=== PATIENT | female | born 1935 | race Caucasian/White ===

== ENCOUNTER 2016-11-07 11:13 | Outpatient (CLI) | payer MEDICARE, BC | END 2016-11-07 11:14 | disposition home or self-care (01) | DX: I73.9 Peripheral vascular disease, unspecified (principal) ==

== ENCOUNTER 2016-11-29 15:16 | Outpatient (CLI) | payer MEDICARE, BC | END 2016-11-29 15:17 | disposition home or self-care (01) | DX: E87.5 Hyperkalemia (principal); E11.9 Type 2 diabetes mellitus without complications; I10 Essential (primary) hypertension; J44.9 Chronic obstructive pulmonary disease, unspecified ==

== ENCOUNTER 2017-03-27 12:16 | Outpatient (CLI) | payer MEDICARE, BC ==
--- NOTE | 2017-03-30 08:57 | Nuclear Medicine Report ---
EXAM: BONE SCAN EXAM DATE: 03/27/2017 03:14 PM. CLINICAL HISTORY: BONE LESION, HISTORY OF BREAST CANCER. Right shoulder pain. COMPARISON: Lumbar spine MR scan dated 07/21/2016. Also lumbar spine radiographs dated 07/03/2007. TECHNIQUE: Following the intravenous administration of 31.7 mCi of technetium 99m MDP and an appropri ate delay, a whole-body scan was performed in anterior and posterior projections. Site-specific spot views of the region of interest were obtained in various projections. FINDINGS: Exam Quality: Normal overall bone radiotracer uptake. Physiological tracer uptake in bilateral collec ting systems. Skull: No focal abnormal uptake. Thorax: No focal abnormal uptake in ribs or sternum. Focal increased uptake in shoulders and SC joint s most compatible with arthritic changes. Pelvis: Subtle increased uptake in left anterior iliac crest. Otherwise unremarkable. Spine: Small foci of increased uptake in lower thoracic and upper lumbar spine, probably related to d egenerative changes. IMPRESSION: 1. Small focus of increased uptake in left anterior iliac spine; correlation with current pelvis radi ograph is recommended. 2. Other foci of increased uptake most likely arthritic. [facility] Referring Provider Line: [phone] SITE ID: [id number]
== END 2017-03-27 12:17 | disposition home or self-care (01) ==
LOC: DI 12:16
PROVIDERS: ATTEND Family Medicine
DX: R94.8 Abnormal results of function studies of other organs and systems (principal)
CPT/HCPCS: 78306; A9503

== ENCOUNTER 2017-07-02 08:00 | Outpatient (CLI) | payer MEDICARE, BC ==
[2017-07-02 19:15] LABS: BASOPHILS % (AUTO) 0.5 %; EOSINOPHILS # (AUTO) 0.1 10^3/uL (0.0-0.7); HCT - HEMATOCRIT 36.7 % (37.0-47.0); HGB - HEMOGLOBIN 11.8 g/dL (12.0-16.0); LYMPHOCYTES # (AUTO) 0.4 10^3/uL (1.5-3.5); LYMPHOCYTES % (AUTO) 4.8 %; MEAN CORPUSCULAR HGB CONC 32.2 g/dL (32.0-36.0); MEAN CORPUSCULAR VOLUME 83.8 fL (81.0-99.0); MONOCYTES # (AUTO) 0.4 10^3/uL (0.0-1.0); MONOCYTES % (AUTO) 5.6 %; NEUTROPHILS # (AUTO) 6.6 10^3/uL (1.5-6.6); NEUTROPHILS % (AUTO) 88.1 %; RED BLOOD COUNT 4.38 10^6/uL (4.20-5.40); RED CELL DISTRIBUTION WIDTH 14.8 % (12.0-15.0); UNCORRECTED WHITE BLOOD COUNT 7.5 x10^3/uL; WHITE BLOOD COUNT 7.5 x10^3/uL (4.8-10.8)
[2017-07-02 19:48] LABS: BILIRUBIN,TOTAL 0.4 mg/dL (0.2-1.0); BUN - BLOOD UREA NITROGEN 38 mg/dL (6-20); CALCIUM 8.8 mg/dL (8.5-10.3); CARBON DIOXIDE - CO2 22 mmol/L (21-32); CHLORIDE 108 mmol/L (101-111); CHOL/HDL RATIO 4.1 (<4.4); CHOLESTEROL 162 mg/dL; CREATININE 0.9 mg/dL (0.4-1.0); GFR - MDRD 60 (>89); GLUCOSE 102 mg/dL (70-100); HDL CHOLESTEROL 40 mg/dL; POTASSIUM 4.7 mmol/L (3.5-5.0); SODIUM 137 mmol/L (135-145); TOTAL PROTEIN 6.3 g/dL (6.7-8.2); TRIGLYCERIDES 204 mg/dL; VLDL CHOLESTEROL 41 mg/dL
[2017-07-02 20:35] LABS: HEMOGLOBIN A1C 0.68 g/dL
== END 2017-07-02 08:01 | disposition home or self-care (01) ==
LOC: LAB.WCP 08:00
PROVIDERS: ATTEND Family Medicine
DX: R06.02 Shortness of breath (principal); E11.9 Type 2 diabetes mellitus without complications; E78.5 Hyperlipidemia, unspecified; I10 Essential (primary) hypertension
CPT/HCPCS: 36415; 80053; 80061; 83036; 85025

== ENCOUNTER 2017-07-13 18:02 | Outpatient (CLI) | payer MEDICARE, BC ==
--- NOTE | 2017-07-13 19:11 | XRAY Preliminary Report ---
Exam: XR CHEST 2 VIEW PA/LAT IMPRESSION: Acute on chronic lung disease consisting of bibasilar infiltrates and moderate bilateral pleural effusions. GABEA The call report notification system was initiated by Dr. Bev Carrasco at 18:51 hrs on 07/13/17. The above findings were discussed with Dr Wood by Dr. Bev Carrasco at 19:10 hrs on 07/13/17. SITE ID: [id number]
--- NOTE | 2017-07-13 19:17 | XRAY Report ---
EXAM: CHEST RADIOGRAPHY EXAM DATE: 07/13/2017 06:31 PM. CLINICAL HISTORY: Shortness of breath. COMPARISON: No prior chest x-ray. Right shoulder 06/14/2017. TECHNIQUE: 2 views. FINDINGS: Lungs/Pleura: Overexpanded. Moderate blunting of the lateral posterior costophrenic angles. Bibasilar reticular nodular infiltrates. No upper lobe mass congestion nor pneumothorax. Mediastinum: Heart and mediastinal contours are unremarkable. Other: Remote right breast surgery. IMPRESSION: Acute on chronic lung disease consisting of bibasilar infiltrates and moderate bilateral pleural effusions. [facility] The call report notification system was initiated by Dr. Bev Carrasco at 18:51 hrs on 07/13/17. The above findings were discussed with Dr Wood by Dr. Bev Carrasco at 19:10 hrs on 07/13/17. Referring Provider Line: [phone] SITE ID: [id number]
== END 2017-07-13 18:03 | disposition home or self-care (01) ==
LOC: DI 18:02
PROVIDERS: ATTEND Family Medicine
DX: R91.8 Other nonspecific abnormal finding of lung field (principal); J90 Pleural effusion, not elsewhere classified
CPT/HCPCS: 71020

== ENCOUNTER 2017-07-27 10:59 | Outpatient (CLI) | payer MEDICARE, BC | END 2017-07-27 11:00 | disposition home or self-care (01) | LOC: DI 10:59 | PROVIDERS: ATTEND Family Medicine | DX: R06.02 Shortness of breath (principal) | CPT/HCPCS: 93306 ==

== ENCOUNTER 2017-08-21 13:07 | Outpatient (CLI) | payer MEDICARE, BC | END 2017-08-21 13:08 | disposition critical access hospital (66) | LOC: EMS 13:07 | PROVIDERS: ATTEND Surgery | DX: R10.9 Unspecified abdominal pain (principal) | CPT/HCPCS: A0425; A0427 ==

== ENCOUNTER 2017-08-21 13:25 | Inpatient (IN) | payer MEDICARE, BC ==
[2017-08-21] MEDS ORDERED: MORPHINE 2 MG/ML SYRINGE IVP STA (13:42)
[2017-08-21] MEDS ORDERED: SODIUM CHLORIDE 0.9% 1,000 ML IV ONE (13:42)
--- NOTE | 2017-08-21 13:46 | ED Physician Documentation ---
PD HPI ABD PAIN - Stated complaint Stated Complaint: abd/back px - Chief complaint Chief Complaint: Abd Pain - History obtained from History obtained from: Patient, EMS - History of Present Illness Timing - onset: Other (81-year-old woman with lower abdominal and rectal pain of 2 months duration which is worsening and much worse today. It is associated with poor appetite, she is basically not eating at all, she has been drinking energy drinks and shakes. She has had decreased bowel movements and a 70 pound weight loss in that.. She had an x-ray yesterday showing a potential ileus. She been taking pain medication, but she does not know what kind it is not helpful. She does not know when her last colonoscopy was.) Review of Systems Ten Systems: 10 systems reviewed and negative Constitutional: reports: Fatigue, Weight Loss. denies: Fever, Chills Cardiac: denies: Chest pain / pressure, Palpitations Respiratory: denies: Dyspnea, Cough GI: reports: Abdominal Pain, Constipation. denies: Nausea, Vomiting : denies: Dysuria PD PAST MEDICAL HISTORY - Past Medical History Past Medical History: Yes Endocrine/Autoimmune: Type 2 diabetes - Past Surgical History Past Surgical History: No - Allergies Allergies/Adverse Reactions: Allergies Allergy/AdvReac Type Severity Reaction Status Date / Time No Known Drug Allergies Allergy Verified 08/21/17 13:32 - Social History Does the pt smoke?: No Smoking Status: Former smoker Does the pt drink ETOH?: No Does the pt have substance abuse?: No - Family History Family history: reports: Non contributory - Immunizations Immunizations: Other immun not current - POLST Patient has POLST: No PD ED PE NORMAL - Vitals Vital signs reviewed: Yes - General General: Alert and oriented X 3, Other (She is slightly somnolent, she is cachectic) - HEENT HEENT: PERRL, EOMI - Neck Neck: Supple, no meningeal sign, No bony TTP - Cardiac Cardiac: RRR, No murmur, Other (Hyperdynamic precordium) - Respiratory Respiratory: No respiratory distress, Clear bilaterally - Abdomen Abdomen: Other (Tender to the low abdomen without surgical signs) - Rectal Rectal: Other (with Eneida RN. There is a large anterior rectal mass, brown stool which is trace guaiac positive.) - Back Back: No CVA TTP, No spinal TTP - Derm Derm: Normal color, Warm and dry - Extremities Extremities: No deformity, No tenderness to palpate, Normal ROM s pain, No edema , No calf tenderness / cord - Neuro Neuro: Alert and oriented X 3, Normal speech - Psych Psych: Normal mood, Normal affect Results - Vitals Vitals: Vital Signs - 24 hr 08/21/17 08/21/17 13:26 14:53 Temperature 36.1 C L Heart Rate 87 64 Respiratory 16 20 Rate Blood Pressure 139/63 H 152/74 H O2 Saturation 97 98 Oxygen O2 Source Room air - Labs Labs: Laboratory Tests 08/21/17 08/21/17 08/21/17 14:03 14:03 14:03 WBC 21.9 H RBC 4.58 Hgb 12.0 Hct 37.0 MCV 80.7 L MCH 26.2 L MCHC 32.5 RDW 14.5 Plt Count 460 H MPV 7.2 L Neut # 21.0 H Lymph # 0.2 L [place] # 0.6 Eos # 0.0 Baso # 0.0 Absolute Nucleated RBC 0.00 Nucleated RBC % 0.0 Manual Slide Review Indicated WBC Morphology Platelet Estimate INCREASED (>450,000) Platelet Morphology NORMAL APPEARANCE RBC Morph Micro Appear NORMAL APPEARANCE PT 15.0 H INR 1.3 H Sodium 131 L Potassium 5.1 H Chloride 95 L Carbon Dioxide 19 L Anion Gap 17.0 H BUN 69 H Creatinine 1.6 H Estimated GFR (MDRD) 31 L Glucose 166 H Calcium 8.7 Magnesium 2.1 Total Bilirubin 0.7 AST 32 ALT 26 Alkaline Phosphatase 141 H Total Creatine Kinase 42 CK-MB (CK-2) Troponin I Total Protein 6.6 L Albumin 2.6 L Globulin 4.0 Albumin/Globulin Ratio 0.7 L Lipase 25 TSH 08/21/17 08/21/17 14:03 14:03 WBC RBC Hgb Hct MCV MCH MCHC RDW Plt Count MPV Neut # Lymph # [place] # Eos # Baso # Absolute Nucleated RBC Nucleated RBC % Manual Slide Review WBC Morphology Platelet Estimate Platelet Morphology RBC Morph Micro Appear PT INR Sodium Potassium Chloride Carbon Dioxide Anion Gap BUN Creatinine Estimated GFR (MDRD) Glucose Calcium Magnesium Total Bilirubin AST ALT Alkaline Phosphatase Total Creatine Kinase CK-MB (CK-2) 5.0 Troponin I < 0.04 Total Protein Albumin Globulin Albumin/Globulin Ratio Lipase TSH 3.68 - Rads (name of study) 2v chest Radiology: EMP read contemporaneously (Increasing small bilateral effusions with pleural opacities and alveolar opacities which are unchanged.) PD MEDICAL DECISION MAKING - ED course ED course: This is an 81-year-old woman who presents by ambulance with weight loss and perineal pain, evidence of likely rectal cancer on examination which is corroborated on CT with evidence of small bowel obstruction and metastatic disease in the liver. She does have necessity for IV pain medications and IV fluids and will be admitted for further evaluation and treatment. The patient is not interested in surgical options. I discussed the case with the hospice nurse practitioner Angelina Regan and also with Dr. Shelby by phone at 3:30 PM. Departure - Departure Disposition: 66 [facility] DC/Xfer Clinical Impression: Small bowel obstruction, Metastatic cancer Condition: Serious
[2017-08-21] MEDS ORDERED: MORPHINE 2 MG/ML SYRINGE ONE (13:55)
[2017-08-21 14:12] LABS: BASOPHILS % (AUTO) 0.2 %; LYMPHOCYTES # (AUTO) 0.2 10^3/uL (1.5-3.5); MEAN CORPUSCULAR HEMOGLOBIN 26.2 pg (27.0-31.0); MEAN CORPUSCULAR HGB CONC 32.5 g/dL (32.0-36.0); MEAN CORPUSCULAR VOLUME 80.7 fL (81.0-99.0); MEAN PLATELET VOLUME 7.2 fL (7.9-10.8); MONOCYTES # (AUTO) 0.6 10^3/uL (0.0-1.0); MONOCYTES % (AUTO) 2.6 %; NEUTROPHILS % (AUTO) 96.2 %; RED BLOOD COUNT 4.58 10^6/uL (4.20-5.40); RED CELL DISTRIBUTION WIDTH 14.5 % (12.0-15.0); UNCORRECTED WHITE BLOOD COUNT 21.9 x10^3/uL; WHITE BLOOD COUNT 21.9 x10^3/uL (4.8-10.8)
[2017-08-21 14:23] LABS: ALBUMIN/GLOBULIN RATIO 0.7 (1.0-2.2); BILIRUBIN,TOTAL 0.7 mg/dL (0.2-1.0); CALCIUM 8.7 mg/dL (8.5-10.3); CREATININE 1.6 mg/dL (0.4-1.0); MAGNESIUM 2.1 mg/dL (1.7-2.8); POTASSIUM 5.1 mmol/L (3.5-5.0); TOTAL PROTEIN 6.6 g/dL (6.7-8.2)
[2017-08-21 14:26] LABS: TROPONIN I < 0.04 ng/mL (<0.49)
[2017-08-21 14:28] LABS: INR 1.3 (0.8-1.2)
[2017-08-21 14:31] LABS: PLATELET ESTIMATE, MANUAL INCREASED (>450,000) (NORMAL); PLATELET MORPHOLOGY NORMAL APPEARANCE (NORMAL)
[2017-08-21 14:54] VITALS: BP 152/74
--- NOTE | 2017-08-21 15:04 | XRAY Preliminary Report ---
Exam: XR CHEST 2 VIEW PA/LAT IMPRESSION: 1. Bilateral small pleural effusions are mildly larger in size compared to 07/13/2017. 2. Basilar interstitial and alveolar opacities otherwise unchanged. [facility] SITE ID: [id number]
--- NOTE | 2017-08-21 15:07 | XRAY Report ---
EXAM: CHEST RADIOGRAPHY EXAM DATE: 08/21/2017 02:40 PM. CLINICAL HISTORY: Weight loss. COMPARISON: 07/13/2017. TECHNIQUE: 2 views. FINDINGS: Lungs/Pleura: There are bilateral small pleural effusions which appear slightly increased in size pos teriorly on the lateral image. There is a moderate amount of consolidation in the mid and lower lung zones which appear unchanged. No definite new airspace disease. Negative for pneumothorax. Mediastinum: Heart and mediastinal contours are unremarkable. Other: None. IMPRESSION: 1. Bilateral small pleural effusions are mildly larger in size compared to 07/13/2017. 2. Basilar interstitial and alveolar opacities otherwise unchanged. [facility] Referring Provider Line: [phone] SITE ID: [id number]
--- NOTE | 2017-08-21 15:08 | CT Preliminary Report ---
Exam: CT ABDOMEN/PELVIS W/O IMPRESSION: 1. Findings of distal small bowel obstruction. 2. Extensive hepatic metastatic disease. 3. Moderate to large pleural effusions with underlying atelectasis. 4. Other chronic or incidental findings. [facility] SITE ID: [id number]
--- NOTE | 2017-08-21 15:10 | CT Report ---
EXAM: CT ABDOMEN AND PELVIS EXAM DATE: 08/21/2017 02:41 PM. CLINICAL HISTORY: Rectal mass, weight loss, high creatinine. COMPARISONS: None. TECHNIQUE: Routine helical CT imaging was performed through the abdomen and pelvis. IV contrast: None . Enteric contrast: No. Reconstructions: Coronal and sagittal. In accordance with CT protocol optimization, one or more of the following dose reduction techniques w ere utilized for this exam: automated exposure control, adjustment of mA and/or KV based on patient s ize, or use of iterative reconstructive technique. FINDINGS: Lung Bases: Moderate to large bilateral pleural effusions with underlying atelectasis. Coarse lung ma rkings with scarring anteriorly. No pneumothorax. At least three-vessel coronary artery calcification s. Liver: Markedly heterogeneous with numerous ill-defined hypoattenuation lesions. Gallbladder/Bile Ducts: Surgically absent. No ductal dilation. Spleen: Normal. Pancreas: Normal. Adrenal Glands: Thickened and lobulated with indeterminate density. Kidneys: Normal. No masses or hydronephrosis. Peritoneal Cavity/Bowel: Diffuse to dilated small bowel loops with prominent fluid and air-fluid leve ls, measuring up to 3.4 cm in diameter with transition zone in right lower quadrant. No colonic dilat ion. Rectal mass not well visualized in this unenhanced study. Trace free fluid. No free air or defin ite lymphadenopathy. Unremarkable region of appendix. Pelvic Organs: Decompressed urinary bladder. Vasculature: No aneurysms or other significant abnormality. Bones: Mild scoliosis, degenerative changes, sacralization of L5. Other: Very little body fat. IMPRESSION: 1. Findings of distal small bowel obstruction. 2. Extensive hepatic metastatic disease. 3. Moderate to large pleural effusions with underlying atelectasis. 4. Other chronic or incidental findings. [facility] Referring Provider Line: [phone] SITE ID: [id number]
[2017-08-21] MEDS ORDERED: SODIUM CHLORIDE FLUSH 0.9% 10 ML SYRINGE IVP PRN (16:19)
[2017-08-21] MEDS ORDERED: ONDANSETRON 4 MG/2 ML VIAL IVP PRN (16:19)
[2017-08-21] MEDS ORDERED: ONDANSETRON ODT 4 MG TABLET TL PRN (16:19)
[2017-08-21] MEDS ORDERED: LORazepam 0.5 MG TABLET SL PRN (16:24)
[2017-08-21] MEDS: MORPHINE PCA 50 MG IV PRN ×3 (17:45→22:11)
[2017-08-21] MEDS: MORPHINE 2 MG/ML SYRINGE IVP PRN (19:48)
[2017-08-21] MEDS ORDERED: A & D OINTMENT 5 GM PACKET TOP PRN (19:50)
[2017-08-21] MEDS: SODIUM CHLORIDE FLUSH 0.9% 10 ML SYRINGE IVP SCH (19:50)
--- NOTE | 2017-08-21 20:00 | HISTORY & PHYSICAL EXAMINATION ---
DATE OF ADMISSION: 08/21/2017 08/21/2017. PRIMARY CARE PROVIDER: Addy Osorio MD. ADMITTING PROVIDER: Margie Shelby MD. CHIEF COMPLAINT: Abdominal pain, weight loss, back pain, pelvic pain. The patient is an 81-year-old woman who is down to 88 pounds. In looking at her old medical records f [facility] and [facility] she was 114 pounds max maybe 2 years ago. She dropped down to 109 pounds in 2012, 104 pounds in 2014, 95 pounds in 2015, in June 2017 she was 91 pounds and today she is 88. She complains bitterly of just pain everywhere. She is a poor historian and will ramble from shou lder pain to back pain, but if you can get her to focus she will tell you that she has been having pe lvic pain that radiates to her coccyx and rectal pain for many months now. But she says it all seems to be wrapped up in pain "down there." Her hips hurt her, her coccyx hurts her, her lumbar spine hurt s her. It hurts her in the suprapubic area. 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 A bone scan was done in May 2017 showing subtle left iliac crest uptake and it was recommended th at she have a pelvis bone film. That was negative June 2017. A lower T-spine and upper lumbar sp ine lit up with osteoarthritis, but no lesions. She then had a C-spine x-ray, a right shoulder x-ray, a chest x-ray. Chest x-ray July 27 showed bibasilar airspace disease and an effusion. Throughou t this time her primary care providers were concerned about tumor. In [facility] I am not seeing a ph ysical exam of abdomen and pelvis. The patient does not know if she has ever had a colonoscopy. Pain had gotten to the point where she needed to be seen in the office urgently. She was seen by Dr. Lucy Wood yesterday. She was accompanied by her neighbor. While Dr. Wood was told that this was for agonizing abdominal pain, the patient was focused on something else. The neighbor was also fo cused on something else and was asking for hospice care and for pain management. The patient was not really describing abdominal pain, but Dr. Wood ordered a KUB. It showed possible small bowel obstru ction, but she discussed this with radiologist who felt that there was no true bowel obstruction pres ent. Today the neighbor consulted hospice on her own. Kaylynn, from hospice, spoke to the neighbor about thi s patient's symptoms and recommended that the patient just come to the emergency room. In the emergen cy room she is identified as being hypothermic at 36.1, normotensive, 97% on room air, but she is a p ainfully cachectic elderly female at 86 years old crying out with abdominal pain and back pain. Her c hest x-ray shows increasing bilateral effusions with pleural opacities, and her abdomen is tender in the lower abdomen, and she has a large anterior rectal mass with trace guaiac positive stool. CT of t he abdomen and pelvis shows diffuse to dilated small bowel loops with prominent fluid and air fluid l evels, measuring up to 3.4 cm in diameter with transition zone in the right lower quadrant. She has a rectal mass not well visualized with this study. Moderate to large bilateral pleural effusions with underlying atelectasis. Liver has marked heterogeneous numerous ill-defined hypoattenuation lesions. I spoke with Kaylynn at hospice. While hospice is willing to take this patient in to their service, she needs to be managed for intractable pain and small bowel pain at this time. The patient is adamant t hat she does not want any treatment for tumors, she just wants us to make her comfortable and let her . PAST MEDICAL HISTORY 1. Headaches with a CT of the head December 2009 and an MRI of the head November 2005. 2. Restless leg syndrome. 3. Osteoarthritis of the hips. 4. History of zoster. 5. Peripheral vascular disease. 6. Type 2 diabetes mellitus, controlled. 7. Depression. 8. 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 9. Chronic obstructive pulmonary disease. 10. Hyperlipidemia. 11. Hypertension. 12. Eczema. 13. G0, P0. SURGERIES: Include a cholecystectomy, tonsillectomy and a right lumpectomy for breast cancer in the . ALLERGIES: NO KNOWN DRUG ALLERGIES. MEDICATIONS: Not noted in EMR yet. SOCIAL HISTORY: She was a former smoker who quit about 20 years ago. She smoked 2 packs per day for 2 5 years. She has no history of alcohol abuse. She is since November 2015. She lives in her own h ome alone, has support from her brother. FAMILY HISTORY: Mom in her 60s of an OR. Dad at 72 of an OR. Of 5 brothers and 1 sister the re is heart disease and hypertension. No children. REVIEW OF SYSTEMS: Positive for a gradual, but severe weight loss over the last year. Increasing fati leo. Increasing dyspnea on exertion. Increasing rectal pain, lower pelvic pain, back pain, lumbar ruiz n, C-spine pain. Review of systems is difficult to obtain in that patient is very, very uncomfortable and is crying and asking me why am I asking all these questions. She just wants to be made comfortab le and to . But she denies any bloody stool. She denies any vomiting of blood. On examination temperature is 36.1, pulse is 64, blood pressure is 152/74, respirations 20, she is 98 % on room air. She is a painfully cachectic, short-statured, elderly female who looks older than stat ed age. Left eye has some strabismus. Poor dentition. Very dry oral mucosa. She is gulping down water and eating Jello. Lungs have dull lung bases bilaterally. Amazingly there is no increased respirator y effort, no rib retraction. No increased respiratory rate with talking to me. The only time she gets agitated and has increased respiratory rate is when I start talking about end of life planning, and then she gets anxious. The abdomen is very firm with regards to musculature especially in the lower p elvic wall. Suprapubic mass felt, left lower quadrant mass felt. In looking externally at her rectum you can see the changes in her anus, but have to do a rectal exam to get the anterior rectal mass pal pable. Pelvic exam is very painful for this woman. Left sided pelvic mass, none on right, but still p ainful. The extremities are gaunt, cachectic. Severe loss of muscle mass. Extremities are without anastasia ma, clubbing or cyanosis. Neurologically she is alert with slight deafness. She is oriented to person , place, and time. Affect is that of agitation and anxiety. Again, she is so concerned and so focused on dying she is almost inconsolable when I discuss possible planning beyond the next 3 days. She is so convinced that she wants to in the next 4 days she does not want to entertain any conversation about what we need to do if she does not in the next 4 days. No focal deficits, but is a 1-perso n assist because she is so weak and wobbly on her legs. Sodium 131, potassium 5.1, BUN 69, creatinine 1.6, alkaline phosphatase 141, glucose 166, troponin le ss than 0.04, TSH 3.68. White cell count is 21.9, hemoglobin 12, hematocrit 37. INR 1.3. CT of the pelvis and abdomen discussed as above. Chest x-ray discussed as above. ASSESSMENT 1. Intractable pain from metastatic disease. My goal is to honor her wishes with regards to comfort a nd pain. I will limit vital sign checks, no more blood draws, no IV fluids. Start her on an IV morphi ne drip and titrate upwards until pain is controlled. Will then have to work on how we can transition her to either oral medications or the use of a morphine drip at home. 2. Metastatic colorectal cancer. The patient is requesting no treatment. I do anticipate in the next few days, if not few weeks. She is drinking and eating. This is in spite of the bowel obstructi on and she has no emesis. I have already spoken to Kaylynn at hospice. They will see if they could see the patient tomorrow and we could work out pain management then. 3. DVT prophylaxis is moot. None will be ordered in this terminally ill patient. 4. DO NOT RESUSCITATE STATUS. JOB #: [id number] EXT JOB #:[id number]
[2017-08-22] MEDS ORDERED: SODIUM CHLORIDE 0.9% 0 ML IV ONE (01:52)
[2017-08-22] MEDS ORDERED: SODIUM CHLORIDE 0.9% 1,000 ML IV ONE (02:05)
[2017-08-22] MEDS ORDERED: SODIUM CHLORIDE 0.9% 1,000 ML IV SCH (03:00)
[2017-08-22] MEDS: SODIUM CHLORIDE FLUSH 0.9% 10 ML SYRINGE IVP SCH ×2 (05:51→15:05)
[2017-08-22] MEDS: MORPHINE 2 MG/ML SYRINGE IVP PRN (06:43)
[2017-08-22] MEDS ORDERED: POLYETHYLENE GLYCOL 3350 17 GM PACKET PO PRN (09:00)
[2017-08-22] MEDS: MORPHINE PCA 50 MG IV PRN (18:18)
[2017-08-23] MEDS: SODIUM CHLORIDE FLUSH 0.9% 10 ML SYRINGE IVP SCH (00:19)
--- NOTE | 2017-08-23 01:34 | DISCHARGE SUMMARY ---
"Discharge Summary Admit Date: 08/21/17 Discharge Date: 08/23/17 (Time of 00:30) Discharging Provider: Devin Mckeon MD Primary Care Provider: Lucy Wood MD Code Status: Do Not Attempt Resuscitation Discharge Disposition: 20 - DIAGNOSES Admission Diagnoses: 1. Intractable pain from metastatic disease 2. Metastatic colon cancer 3. DVT prophylaxis Discharge Diagnoses with Status of Each Condition: 1. Cardiopulmonary arrest 2. Intractable pain 3. Metastatic colorectal cancer - HPI History of Present Illness: The patient is an 81-year-old woman who is down to 88 pounds. In looking at her old medical records from [facility] and [facility] she was 114 pounds max maybe 2 years ago. She dropped down to 109 pounds in 2012, 104 pounds in 2014, 95 pounds in 2015, in June 2017 she was 91 pounds and today she is 88 pounds. She complains bitterly of chest pain everywhere. She is a poor historian and will ramble from shoulder pain to back pain, but if you can get her to focus she will tell you that she has been having pelvic pain that radiates to her coccyx and rectal pain for many months now. But she says it all seems to be wrapped up in pain down there. Her hips hurt her, her coccyx hurts her, her lumbar spine hurts her. It hurts in her suprapubic area. 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 A bone scan was done in May 2017 showing subtle left iliac crest uptake and it was recommended that she have a pelvis bone film. That was negative June 2017. A lower T-spine and upper lumbar spine lit up with osteoarthritis, but no lesions. She then had a C-spine x-ray a right shoulder x -ray a chest x-ray. Chest x-ray July 27 showed bibasilar airspace disease and an effusion. Throughout this time her primary care providers were concerned about tumor. In [facility] I am not seeing a physical exam of abdomen and pelvis. Patient does not know if she ever had a colonoscopy. She had gotten to the point where she needed to be seen in the office emergently. She was seen by Dr. Migdalia Wood yesterday. She was accompanied by her neighbor. While Dr. Dong was told that she was therefore agonizing abdominal pain, the patient was focused on something else. The neighbor was also focused on something else and was asking for hospice care and for pain management. The patient was not really describing abdominal pain, but Dr. Wood ordered a KUB. It showed possible small bowel obstruction, but she discussed this with the radiologist who felt that there was no true bowel obstruction present. Today the neighbor consulted hospice on her own. Kaylynn from hospice spoke to the neighbor about this patient's current symptom and recommended that the patient just come to the emergency room. In the emergency room she is identified as being hypothermic at 36.1, normotensive, 97% on room air, but she is painfully cachectic elderly female at 86 years old crying out with abdominal pain and back pain. Her chest x-ray shows increasing bilateral effusions with pleural opacities. And her abdominal exam revealed tenderness in the lower abdomen and she had a large anterior rectal mass with trace guaiac positive stool. CT of the abdomen pelvis showed diffuse to dilated small bowel loops and prominent fluid and air-fluid levels, measuring up to 3.4 cm in diameter with transition zone in the right lower quadrant. She had a rectal mass not well visualized with this study. Moderate to large bilateral pleural effusions and underlying atelectasis. Liver had marked heterogeneous numerous ill- defined hypoattenuation lesions. I spoke with Kaylynn at hospice. While hospice is willing to take the patient in to their service she needs to be managed for intractable pain and small bowel pain at this time. The patient abdomen that she does not want any treatment for tumors, she just wants to be made comfortable and let her . - CONSULTS | PROCEDURES Consultations: Hospice - HOSPITAL COURSE Hospital Course: The patient was admitted to the hospital with intractable pain from metastatic colorectal cancer. Hospice was consulted and were planning for patient to be admitted to [facility] on 08/24/2017. In the meantime the patient was having her pain controlled by a morphine drip. Plan was for patient to get a PICC line or a central line in order to continue the morphine drip. Despite several attempts by anesthesia they were unable to get a PICC line in the patient on 08/22/2017. The patient did have some distress during this day however she seemed to settle down later in the evening and was pain-free and comfortable. The patient's breathing became increasingly shallow at around 11: 30 PM on 08/22/2017. The patient took her last breath on 08/23 at 00:30. The patient of a cardiopulmonary arrest. The patient's remains were released to the home. Patient's family was notified and condolences were given. - ALLERGIES Allergies/Adverse Reactions: Allergies Allergy/AdvReac Type Severity Reaction Status Date / Time No Known Drug Allergies Allergy Verified 08/21/17 13:32 - MEDICATIONS Home Medications: Ambulatory Orders Medication Instructions Recorded Confirmed Hydrocodone/Acetaminophen 1 each PO Q8H PRN 08/22/17 08/22/17 [Hydrocodon-Acetaminophen 5-325] Meloxicam [Meloxicam] 15 mg PO DAILY 08/22/17 08/22/17 Omeprazole [Omeprazole] 20 mg PO BID 08/22/17 08/22/17 Pramipexole Di-HCl [Mirapex] 0.5 mg PO DAILY 08/22/17 08/22/17 Sertraline [Zoloft] 25 mg PO 2100 08/22/17 08/22/17 - PHYSICAL EXAM AT DISCHARGE Physical Exam Other/Comments: Patient lies in bed motionless with mouth open and eyes partially open. She has cold extremities. The patient has no chest rise and does not appear to have any breath sounds on examination. The patient's heart sounds are absent. Patient has no pupillary reflex. Patient has no corneal reflex. - LABS Result Diagrams: 08/21/17 14:03 08/21/17 14:03 Other Lab Results: Laboratory Results WBC 21.9 x10^3/uL (4.8-10.8) H 08/21/17 14:03 RBC 4.58 10^6/uL (4.20-5.40) 08/21/17 14:03 Hgb 12.0 g/dL (12.0-16.0) 08/21/17 14:03 Hct 37.0 % (37.0-47.0) 08/21/17 14:03 MCV 80.7 fL (81.0-99.0) L 08/21/17 14:03 MCH 26.2 pg (27.0-31.0) L 08/21/17 14:03 MCHC 32.5 g/dL (32.0-36.0) 08/21/17 14:03 RDW 14.5 % (12.0-15.0) 08/21/17 14:03 Plt Count 460 10^3/uL (130-450) H 08/21/17 14:03 MPV 7.2 fL (7.9-10.8) L 08/21/17 14:03 Neut # 21.0 10^3/uL (1.5-6.6) H 08/21/17 14:03 Lymph # 0.2 10^3/uL (1.5-3.5) L 08/21/17 14:03 Mcduffie # 0.6 10^3/uL (0.0-1.0) 08/21/17 14:03 Eos # 0.0 10^3/uL (0.0-0.7) 08/21/17 14:03 Baso # 0.0 10^3/uL (0.0-0.1) 08/21/17 14:03 Absolute Nucleated RBC 0.00 x10^3/uL 08/21/17 14:03 Nucleated RBC % 0.0 /100WBC 08/21/17 14:03 Manual Slide Review Indicated 08/21/17 14:03 WBC Morphology (NORMAL) 08/21/17 14:03 Platelet Estimate INCREASED (>450,000) (NORMAL) 08/21/17 14:03 Platelet Morphology NORMAL APPEARANCE (NORMAL) 08/21/17 14:03 RBC Morph Micro Appear NORMAL APPEARANCE (NORMAL) 08/21/17 14:03 PT 15.0 secs (9.9-12.6) H 08/21/17 14:03 INR 1.3 (0.8-1.2) H 08/21/17 14:03 Sodium 131 mmol/L (135-145) L 08/21/17 14:03 Potassium 5.1 mmol/L (3.5-5.0) H 08/21/17 14:03 Chloride 95 mmol/L (101-111) L 08/21/17 14:03 Carbon Dioxide 19 mmol/L (21-32) L 08/21/17 14:03 Anion Gap 17.0 (6-13) H 08/21/17 14:03 BUN 69 mg/dL (6-20) H 08/21/17 14:03 Creatinine 1.6 mg/dL (0.4-1.0) H 08/21/17 14:03 Estimated GFR (MDRD) 31 (>89) L 08/21/17 14:03 Glucose 166 mg/dL (70-100) H 08/21/17 14:03 Calcium 8.7 mg/dL (8.5-10.3) 08/21/17 14:03 Magnesium 2.1 mg/dL (1.7-2.8) 08/21/17 14:03 Total Bilirubin 0.7 mg/dL (0.2-1.0) 08/21/17 14:03 AST 32 IU/L (10-42) 08/21/17 14:03 ALT 26 IU/L (10-60) 08/21/17 14:03 Alkaline Phosphatase 141 IU/L (42-121) H 08/21/17 14:03 Total Creatine Kinase 42 IU/L (22-269) 08/21/17 14:03 CK-MB (CK-2) 5.0 ng/mL (0.6-6.3) 08/21/17 14:03 Troponin I < 0.04 ng/mL (<0.49) 08/21/17 14:03 Total Protein 6.6 g/dL (6.7-8.2) L 08/21/17 14:03 Albumin 2.6 g/dL (3.2-5.5) L 08/21/17 14:03 Globulin 4.0 g/dL (2.1-4.2) 08/21/17 14:03 Albumin/Globulin Ratio 0.7 (1.0-2.2) L 08/21/17 14:03 Lipase 25 U/L (22-51) 08/21/17 14:03 TSH 3.68 uIU/mL (0.34-5.60) 08/21/17 14:03 - DIAGNOSTIC IMAGING Diagnostic Imaging Results: Final report reviewed Diagnostic Imaging Results Comments: Chest x-ray Impression: 1. Bilateral small pleural effusions are mildly larger in size compared to 2. Basilar interstitial and alveolar opacities otherwise unchanged CT abdomen/pelvis Impression: 1. Findings of distal small bowel obstruction 2. Extensive hepatic metastatic disease. 3. Moderate to large pleural effusions with underlying atelectasis. 4. Other chronic or incidental findings. - FOLLOW UP Follow Up: The patient has and her remains were released to the home of family's choice. Time of : 08-23-2017 at 00:30 - TIME SPENT Time Spent in Discharge (Minutes): 35 (FAX TO PCP)"
== END 2017-08-23 00:30 | disposition expired | DRG 947 ==
LOC: EDUNIT# → ED 13:25 → MS3 16:20
PROVIDERS: ADMIT Specialist; ATTEND Internal Medicine
DX: G89.3 Neoplasm related pain (acute) (chronic) (principal); I46.9 Cardiac arrest, cause unspecified; C19 Malignant neoplasm of rectosigmoid junction; C78.7 Secondary malignant neoplasm of liver and intrahepatic bile duct; Z68.1 Body mass index [BMI] 19.9 or less, adult; J90 Pleural effusion, not elsewhere classified; J98.11 Atelectasis; R63.4 Abnormal weight loss; M48.061 Spinal stenosis, lumbar region without neurogenic claudication; M47.9 Spondylosis, unspecified; M16.0 Bilateral primary osteoarthritis of hip; E11.9 Type 2 diabetes mellitus without complications; Z87.891 Personal history of nicotine dependence; Z66 Do not resuscitate
CPT/HCPCS: 36415; 71020; 74176; 80053; 82550; 82553; 83690; 83735; 84443; 84484; 85025; 85610; 96361; 96374; 99283; 99284; 99285